=== PATIENT | female | born 1980 | race Caucasian/White ===

== ENCOUNTER → 2019-06-17 | Outpatient (CLI) | payer OTHER, SELFPAY ==
[2014-08-27 08:41] VITALS: BMI 36.3
[2019-06-17 18:02] LABS: Basophil# 0.03 X10^3/uL; Basophil% 0.5 % (0-1); Eosinophil# 0.06 X10^3/uL; Hematocrit 41.4 % (37-47); Hemoglobin 14.3 g/dL (12.0-15.0); Lymphocyte % 25.8 % (19-41); Mean Corp Hgb Conc 34.5 g/dL (32-36); Mean Corpuscular Hgb 32.4 pg (27.0-32.0); Mean Corpuscular Volume 93.9 fL (81-99); Mean Platelet Vol. 10.1 fl (6.2-12.0); Monocyte# 0.51 X10^3/uL; Monocyte% 8.2 % (0-10); NRBC Flagged by Analyzer 0 % (0-5); Neutrophil # 3.99 X10^3/uL (2.7-7.7); Neutrophil % 64.2 % (47-70); Platelet Count 237 K/mm3 (150-450); RBC Distribution Width CV 11.3 % (11.6-14.6); RBC Distribution Width SD 38.6 fl (35.1-43.9); Red Blood Count 4.41 M/mm3 (4.2-5.4); White Blood Count 6.2 K/mm3 (4.4-11.0)
[2019-06-17 18:30] LABS: ALB/GLOB Ratio 1.1 RATIO (0.9-2.4); AST(SGOT) 20 U/L (15-37); Alanine Aminotransfer ALT/SGPT 31 U/L (13-56); Albumin, Serum 4.2 g/dL (3.2-5.0); Alkaline Phosphatase 82 U/L (45-117); Anion Gap 8 (5-15); BUN 19 mg/dL (7-18); BUN/Creat Ratio 20.1 RATIO (10-20); Calcium,Total 8.9 mg/dL (8.5-10.1); Chloride 105 mmol/L (98-107); Cholesterol 206 mg/dL (200); Creatinine, Serum 0.94 mg/dL (0.55-1.02); EST Glomerular Filtration Rate 70 mL/min (>60); Est Glom Filt Rate - Afr Amer 84 mL/min (>60); Globulin 3.7 g/dL (2.2-4.2); Glucose 69 mg/dL (74-106); High Density Lipoprotein 53 mg/dL; Protein, Total 7.9 g/dL (6.4-8.2); Sodium Level 139 mmol/L (136-145); Thyroid Stim Hormone (TSH) 1.12 uIU/mL (0.358-3.74); Triglycerides 118 mg/dL; Very Low Density Lipoprotein 24 mg/dL (5-40)
== END | disposition home or self-care (01) ==
LOC: MFPLAB 15:46
PROVIDERS: Family Provider Family Medicine; PCP Family Medicine; Referring Provider Family Medicine; Visit Provider Family Medicine
DX: Z00.00 Encounter for general adult medical examination without abnormal findings (principal)
CPT/HCPCS: 36415; 80053; 80061; 84443; 85025

== ENCOUNTER → 2019-07-08 | Outpatient (CLI) | payer OTHER, SELFPAY ==
[2014-08-27 08:41] VITALS: BMI 36.3
--- NOTE | 2019-07-08 17:05 | RAD_ITS ---
HISTORY:knee pain, right more than the leftpain x 7 months knee pain, right more than the leftpain x 7 months COMPARISON: None FINDINGS: # of images incl. paperwork: 4 XR Knee Complete 4 Views or More: Left BONE AND JOINTS: No acute fracture or subluxation. Marginal osteophytes most marked laterally as well as at the patellofemoral joint with patellofemoral joint space narrowing. SOFT TISSUES: Unremarkable. No radiopaque foreign body. RAD/Knee 4 or More Views IMPRESSION: Mild osteoarthritis at 1733 Reported and signed by: Marlin Chang DO Electronically Signed: Marlin Chang DO at 17:32 EDT Tel , Service support ,
--- NOTE | 2019-07-08 17:06 | RAD_ITS ---
HISTORY:knee pain, right more than the leftpain x 7 months knee pain, right more than the leftpain x 7 months COMPARISON: None FINDINGS: # of images incl. paperwork: 4 XR Knee Complete 4 Views or More: Right BONE AND JOINTS: No acute fracture or subluxation. Marginal osteophytes are seen more prominently at the lateral space in the medial as well as at the patellofemoral joint with patellofemoral joint space narrowing. SOFT TISSUES: Unremarkable. No radiopaque foreign body. RAD/Knee 4 or More Views IMPRESSION: Mild osteoarthritis at 1733 Reported and signed by: Marlin Chang DO Electronically Signed: Marlin Chang DO at 17:32 EDT Tel , Service support ,
== END | disposition home or self-care (01) ==
LOC: MTRAD 17:04
PROVIDERS: Family Provider Family Medicine; PCP Family Medicine; Referring Provider Family Medicine; Visit Provider Family Medicine
DX: M25.561 Pain in right knee (principal); M25.562 Pain in left knee
CPT/HCPCS: 73564

== ENCOUNTER → 2019-08-05 | Outpatient (CLI) | payer OTHER, SELFPAY ==
[2014-08-27 08:41] VITALS: BMI 36.3
--- NOTE | 2019-08-05 10:32 | BI_ITS ---
MAMMOGRAPHY - BILATERAL SCREENING REASON FOR EXAM: Female, 39 years old. Routine annual screening examination. PERTINENT HISTORY: Non-contributory. TECHNIQUE: Digital bilateral breast sumanth (3D mammographic acquisition) in the CC and MLO projections. 2-D mediolateral oblique (MLO) and craniocaudad (CC) views of both breasts were obtained. CAD: Full Field Digital Mammography with Computer Added Detection was performed. COMPARISON: None. Baseline examination. FINDINGS: Breast Composition: The breasts are heterogeneously dense, which may obscure small masses. There are no dominant masses or suspicious calcifications. No other significant abnormalities are identified. BI/SCREEN MAMM (CAD) W/SUMANTH BILAT IMPRESSION: Negative screening mammogram. Yearly followup mammogram recommended. (A) ASSESSMENT CATEGORY: BIRADS Category 1: Negative. A letter regarding these results will be sent to the patient by the facility within 30 days. Approximately 10% of breast cancers are not detected by mammography. A normal mammogram should not delay biopsy of a clinically suspicious abnormality. [id number] Electronically Signed: Rubin Souza, at 12:54 EDT , Service support ,
== END | disposition home or self-care (01) ==
LOC: OPBI 10:30
PROVIDERS: Family Provider Family Medicine; PCP Family Medicine; Referring Provider Family Medicine; Visit Provider Family Medicine
DX: Z12.31 Encounter for screening mammogram for malignant neoplasm of breast (principal)
CPT/HCPCS: 77063; 77067

== ENCOUNTER 2019-08-20 17:30 | Outpatient (RCR) | payer OTHER, SELFPAY ==
--- NOTE | 2019-07-16 18:58 | HP.PTEVAL_ITS ---
Patient's Visit Information PALMIRA SIMONS is a 38 year old F referred to Physical Therapy by Brock Henson MD with a diagnosis of R knee pain and B mild OA. Date of Evaluation: 07/16/19 Physical Therapist: ELIA Mason - Visit Plan Frequency: 2x /Week Duration: 2-4 Weeks Plan: 2X/ week for 3-4 weeks for R hip and knee strength, gait training, R KNEE AROM, functional activities with HEP - Subjective Findings: She has always been very active and still does exercise. In Nov she was sledding with her family and her daughter jumped onto her R knee... she felt like a pain... since then something has not been right. It is affected her QOL... lateral movements and she feels pain under her knee cap. WHen she is not exercising it is annoying but when she goes down stairs or jumps etc it is uncomfortable. IT is no longer swelling after activity anymore. 2 weeks ago x- rays showed mild arthritis. She does not believe that arthritis is the only problem. In the summer she would normally do a morning and evening fitness class but it almost locks at times with her normal fitness level. If she tries to piviot in the back yard... the more she exercises the more crunchiness she would get. up and down stairs is bothering her. Running is uncomfortable. No injection was given. Throbs at night after a long day. It does not keep her up at night. Kneeling on a hard surfaces bother her R knee. Squats are uncomftable. - Pain R knee pain Pain Intensity (Out of 10): 1 Comment: 10 with standing for a long period of time. - Objective Gait: Slightly decreased stance time on the R LE. 130 degrees L knee flex and 0 degrees extension. 120 degrees R knee flex, -5 degrees extension. Increase R HS cramping with end range knee AROM in supine. LE MMT: B hip flex 4-/5, B hip abd 4-/5, B knee ext 4-/5, B knee flex 4/5,. SOme pain with valgus at the R knee at about 30 degrees from full extension. OHS: Normal OHS mechanics but has increased discomfort but did not want to continue with them as she feels it would increase her pain. Pt had throbbing in R knee cap after PT EVAL. Good HS length.... tight gastroc B and slight tight Quad B. - Goals Goal 1:: I HEP Goal Time Frame: 2 Weeks Goal 2:: Increase R knee ROM to 0 degrees extension and 130 degrees R knee flexion without pain Goal Time Frame: 2-4 Weeks Goal 3:: Be able to perform an OHS without pain with good mechanics Goal Time Frame: 2-4 Weeks - Rehabilitation Potential Rehabilitation Potential: Good - Anticipated Interventions Patient/Client Instruction: Educate patient on: Condition, Plan of Care For the Purpose of:: To decrease pain, To decrease swelling/inflammation, To increase ROM, To improve nutrient delivery to tissue, To improve muscle performance and motor function, To improve ability to perform ADL's, To increase tolerance to activity/condition/position, To improve performance and independence with ADL's, To decrease level of supervision to perform tasks, To improve ability of physical actions for home/community/work/leisure, To improve gait and locomotor functions, To improve health of tissue, To decrease soft tissue restriction, To increase flexibility/ROM Therapeutic Exercise to Include: Strength training, Endurance training, Balance training, Flexibilty training, Gait and locomotor training, Passive ROM, Active ROM For the Purpose of:: To decrease pain, To decrease swelling/inflammation, To increase ROM, To improve nutrient delivery to tissue, To increase oxygenation perfusion, To improve muscle performance and motor function, To improve ability to perform ADL's, To increase tolerance to activity/condition/position, To improve performance and independence with ADL's, To decrease level of supervision to perform tasks, To improve ability of physical actions for home/community/work/leisure, To improve gait and locomotor functions, To improve health of tissue, To decrease soft tissue restriction, To increase flexibility/ROM, To improve endurance Functional Training to Include: Gait training For the Purpose of:: To improve gait and locomotor functions IF ES: Yes Ultrasound (thermal/non thermal): Yes For the Purpose of:: To decrease pain, To decrease swelling/inflammation, To improve nutrient delivery to tissue Thank you for the opportunity to evaluate your patient. For Medicare and Medicare HMO plans, please review the plan of care and approve it. It will need to be FAXED BACK to us at [phone] for Medicare purposes. For Medicare only, by signing this I certify the plan of care. Please let me know if there are questions or concerns regarding this plan of care. Physician Signature : Date:
--- NOTE | 2019-08-20 18:08 | HP.PTDCSUM_ITS ---
HP - PT D/C Summary It has been my pleasure to treat PALMIRA SIMONS under orders from Brock Henson MD, for the diagnosis of R knee pain and B mild OA for a total of 9 visit(s). Discharge Date: 08/20/19 Please see the following information for a summary of their discharge status. - Subjective Subjective: Have stopped going to her exercise classes.... dont feel the discomfort as early in the day but her QOL is poor due to being inactive. She called her Dr and has an appointment on Sunday. It is not locking and not giving out but she has a feeling that her knee needs to pop.... if she does too much at the end of the day. she gets cramps in her hamstring and the base of her knee that she has not experienced before. She feel that she is stronger but she has not felt that she is able to do the same cardio load she is used to. x- rays showed mild patella OA. She has pain under her knee caps and pain above the patella and sore and tight. When she does heavy jumping such as box jumps she would have sharp pain. She has annoying and nagging knee pain with walking down hill and down steps. When she was doing Terminal knee extension she would get increase pain. No pain with typical walking but sore by the end of the day... a co-worker asked why she was limping. She has restless leg when goes to bed cause it is so sore... Increase pain when sits with leg extended and then tries to bend the knee. - Pain R knee pain Pain Intensity (Out of 10): 2 - Overall Improvement % Improvement: 40 - Objective Objective/Function: R knee AROM: 0-130 degrees. R LE MMT: R hip abd 4/5 and R hip ext 4/5. Pain with pressure over the knee cap. OHS: decrease weight shift on the R side and slight increase pain. - Goals Goal 1:: I HEP Goal Progress: Goal Met Goal 2:: Increase R knee ROM to 0 degrees extension and 130 degrees R knee flexion without pain Goal Progress: Goal Met Goal 3:: Be able to perform an OHS without pain with good mechanics Goal Progress: Progressing - Plan Plan: Pt is a little better since she reduced her activity but she has eliminated exercise. She is a little better in strength.... at this point physician reassessment with possible MRI/ortho consult. - D/C Information Discharge Comments: DC PT. Physician referral for either ortho consult of MRI If there are questions or concerns regarding this patient's physical therapy, please feel free to call me at [phone]. Thank you for the referral of this patient. Sincerely, Meche Martin, MPT
== END 2019-08-20 19:00 | disposition home or self-care (01) ==
LOC: PT 17:30
PROVIDERS: Family Provider Family Medicine; PCP Family Medicine; Referring Provider Family Medicine; Visit Provider Family Medicine
DX: M25.561 Pain in right knee (principal); M17.0 Bilateral primary osteoarthritis of knee
CPT/HCPCS: 97110; 97161; 97530

== ENCOUNTER → 2019-11-27 16:03 | Outpatient (CLI) | payer OTHER, SELFPAY ==
[2014-08-27 08:41] VITALS: BMI 36.3
[2019-12-03 20:50] LABS: HPV Reflexed? NOT INDICATED
== END ==
PROVIDERS: Visit Provider Obstetrics & Gynecology
DX: Z12.4 Encounter for screening for malignant neoplasm of cervix (principal)
CPT/HCPCS: 88175; G0145

== ENCOUNTER → 2020-08-31 | Outpatient (CLI) | payer OTHER, SELFPAY ==
[2014-08-27 08:41] VITALS: BMI 36.3
--- NOTE | 2020-08-31 12:08 | RAD_ITS ---
HISTORY: chest pain, fatigue, body aches over the last weekend ADDITIONAL HISTORY: None provided. COMPARISON: None EXAMINATION/TECHNIQUE: XR Chest 2 Views Number of images including paperwork: 2 FINDINGS: LUNGS AND PLEURA: No consolidation, mass or pleural effusion. CARDIAC SILHOUETTE: Unremarkable. MEDIASTINUM AND JOSE ALFREDO: Unremarkable. UPPER ABDOMEN: Unremarkable. SKELETON AND SOFT TISSUES: No acute findings. Degenerative changes. OTHER DEVICES AND HARDWARE: None. RAD/Chest PA and Lateral IMPRESSION: No acute cardiopulmonary abnormality. at 0812 Reported and signed by: Olivia Jamil MD Electronically Signed: Olivia Jamil MD at 8:11 EDT Tel , Service support ,
[2020-08-31 15:43] LABS: Absolute Lymphocyte Count 1.61 X10^3/uL (0.83-4.51); Absolute Neutrophil Count 4.4 X10^3/uL (2.0-7.7); Basophil# 0.02 X10^3/uL; Basophil% 0.3 % (0-1); Eosinophil# 0.06 X10^3/uL; Eosinophils% 0.9 % (0-5); Hematocrit 42.6 % (37-47); Hemoglobin 14.3 g/dL (12.0-15.0); Lymphocyte # 1.61 X10^3/ul (4.0); Lymphocyte % 24.3 % (19-41); Mean Corp Hgb Conc 33.6 g/dL (32-36); Mean Corpuscular Hgb 32.4 pg (27.0-32.0); Mean Corpuscular Volume 96.4 fL (81-99); Mean Platelet Vol. 10.2 fl (6.2-12.0); Monocyte# 0.56 X10^3/uL; Monocyte% 8.4 % (0-10); NRBC Flagged by Analyzer 0 % (0-5); Neutrophil # 4.37 X10^3/uL (2.7-7.7); Neutrophil % 65.9 % (47-70); Platelet Count 272 K/mm3 (150-450); RBC Distribution Width CV 10.8 % (11.6-14.6); Red Blood Count 4.42 M/mm3 (4.2-5.4); White Blood Count 6.6 K/mm3 (4.4-11.0)
[2020-08-31 16:11] LABS: AST(SGOT) 26 U/L (15-37); Alanine Aminotransfer ALT/SGPT 39 U/L (13-56); Alkaline Phosphatase 88 U/L (45-117); Anion Gap 7 (5-15); BUN 14 mg/dL (7-18); BUN/Creat Ratio 16.6 RATIO (10-20); Calcium,Total 9.1 mg/dL (8.5-10.1); Chloride 103 mmol/L (98-107); Cholesterol 197 mg/dL (200); Creatinine, Serum 0.84 mg/dL (0.55-1.02); EST Glomerular Filtration Rate 79 mL/min (>60); Est Glom Filt Rate - Afr Amer 96 mL/min (>60); Globulin 4.2 g/dL (2.2-4.2); Glucose 70 mg/dL (74-106); High Density Lipoprotein 58 mg/dL; Potassium 3.5 mmol/L (3.5-5.1); Protein, Total 8.2 g/dL (6.4-8.2); Sodium Level 137 mmol/L (136-145); Thyroid Stim Hormone (TSH) 0.01 uIU/mL (0.358-3.74); Triglycerides 85 mg/dL; Very Low Density Lipoprotein 17 mg/dL (5-40)
== END | disposition home or self-care (01) ==
PROVIDERS: PCP Family Medicine; Referring Provider Family Medicine; Visit Provider Family Medicine
DX: R07.9 Chest pain, unspecified (principal)
CPT/HCPCS: 36415; 71046; 80053; 80061; 84443; 85025

== ENCOUNTER → 2020-09-01 | Outpatient (CLI) | payer OTHER, SELFPAY ==
[2014-08-27 08:41] VITALS: BMI 36.3
[2020-09-01 18:24] LABS: T4 Free Direct 1.46 ng/dL (0.76-1.46)
[2020-09-04 08:08] LABS: Thyroid Stim Immunoglob <0.10 IU/L (0.00-0.55)
[2020-09-05 07:14] LABS: Anti-Thyroglobulin AB < 1.0 IU/mL (0.0-0.9); Thyroglobulin, Serum Qt. 24.6 ng/mL (1.5-38.5); Thyroid Peroxidase AB < 9 IU/mL (0-34)
== END | disposition home or self-care (01) ==
LOC: MFPLAB 15:54
PROVIDERS: PCP Family Medicine; Referring Provider Family Medicine; Visit Provider Family Medicine
DX: I10 Essential (primary) hypertension (principal); E78.00 Pure hypercholesterolemia, unspecified; R79.89 Other specified abnormal findings of blood chemistry
CPT/HCPCS: 36415; 84432; 84439; 84445; 86376; 86800

== ENCOUNTER → 2020-09-02 09:36 | Outpatient (CLI) | payer OTHER, SELFPAY ==
[2014-08-27 08:41] VITALS: BMI 36.3
--- NOTE | 2020-09-03 14:36 | STRESSREP_ITS ---
Stress Test Report Date: 09/02/2020 Procedure: Exercise tolerance test Indications: [Chest pain] Consent: Per the patient Procedure: The patient exercised on a Ike protocol for 9 minutes achieving a peak heart rate of 176 bpm (98% predicted maximal heart rate) with a peak blood pressure 202/72 mmHg and a peak MET capacity of approximately 10.1 MET's. The baseline ECG demonstrated normal sinus rhythm. The peak exercise ECG demonstrated sinus tachycardia with upsloping ST depressions in the inferior and lateral leads. There were no significant ischemic ST-T changes. [There were no cardiac dysrhythmias pretest, during exercise, or recovery]. The functional capacity was considered normal for age. The patient had no complaint of chest discomfort during exercise or recovery. The examination was discontinued secondary to dyspnea. Impression: 1. Technically adequate (percent predicted maximal heart rate greater than 85%) exercise tolerance test 2. Stress test is negative for exercise-induced chest pain. 3. Stress test test is negative for exercise-induced EKG changes of ischemia. 4. Functional capacity is normal for age This note was generated with [employer] software. It may contain incorrect words, spelling, and punctuation that were not noted in checking the note before signing.
== END | disposition home or self-care (01) ==
LOC: CVS 09:36
PROVIDERS: PCP Family Medicine; Referring Provider Family Medicine; Visit Provider Family Medicine
CPT/HCPCS: 93017

== ENCOUNTER → 2020-12-02 12:57 | Outpatient (CLI) | payer OTHER, SELFPAY ==
--- NOTE | 2020-12-02 12:59 | BI_ITS ---
MAMMOGRAPHY - BILATERAL SCREENING REASON FOR EXAM: Female, 40 years old. Routine annual screening examination. PERTINENT HISTORY: Non-contributory. TECHNIQUE: Digital bilateral breast sumanth (3D mammographic acquisition) in the CC and MLO projections. 2-D mediolateral oblique (MLO) and craniocaudad (CC) views of both breasts were obtained. CAD: Full Field Digital Mammography with Computer Added Detection was performed. COMPARISON: Comparison is made with prior study dated 08/05/2019. FINDINGS: Breast Composition: The breasts are extremely dense, which lowers the sensitivity of mammography. There are no dominant masses or suspicious calcifications. No other significant abnormalities are identified. There has been no significant change since the prior study. BI/SCRN MAMM (CAD)W/SUMANTH BILAT IMPRESSION: Stable bilateral screening mammogram. Yearly follow-up mammogram recommended. (A) ASSESSMENT CATEGORY: BIRADS Category 1: Negative. A letter regarding these results will be sent to the patient by the facility within 30 days. Approximately 10% of breast cancers are not detected by mammography. A normal mammogram should not delay biopsy of a clinically suspicious abnormality. [id number] Electronically Signed: Rubin Souza, at 13:55 EST , Service support ,
== END ==
PROVIDERS: PCP Family Medicine; Referring Provider Family Medicine; Visit Provider Family Medicine
DX: Z12.31 Encounter for screening mammogram for malignant neoplasm of breast (principal)
CPT/HCPCS: 77063; 77067

== ENCOUNTER → 2020-12-02 | Outpatient (CLI) | payer OTHER, SELFPAY ==
[2020-12-07 15:25] LABS: HPV Reflexed? NOT INDICATED
== END | disposition home or self-care (01) ==
LOC: LABSPEC 13:34
PROVIDERS: PCP Family Medicine; Visit Provider Obstetrics & Gynecology
DX: Z12.4 Encounter for screening for malignant neoplasm of cervix (principal)
CPT/HCPCS: 88175; G0145

== ENCOUNTER 2021-11-24 15:47 | Outpatient (CLI) | payer OTHER, SELFPAY | END 2021-11-24 23:59 | disposition short-term general hospital (02) | PROVIDERS: PCP Family Medicine; Visit Provider Family Medicine | DX: Z11.52 Encounter for screening for COVID-19 (principal) | CPT/HCPCS: 87635; U0003; U0005 ==

== ENCOUNTER 2021-12-13 11:00 | Outpatient (CLI) | payer OTHER, SELFPAY ==
[2021-12-13 12:19] LABS: Absolute Lymphocyte Count 1.24 X10^3/uL (0.83-4.51); Absolute Neutrophil Count 2.6 X10^3/uL (2.0-7.7); Basophil# 0.03 X10^3/uL; Basophil% 0.7 % (0-1); Eosinophil# 0.07 X10^3/uL; Eosinophils% 1.6 % (0-5); Hematocrit 40.4 % (37-47); Hemoglobin 14.2 g/dL (12.0-15.0); Lymphocyte # 1.24 X10^3/ul (0.83-4.51); Lymphocyte % 28.5 % (19-41); Mean Corp Hgb Conc 35.1 g/dL (32-36); Mean Corpuscular Hgb 33.2 pg (27.0-32.0); Mean Corpuscular Volume 94.4 fL (81-99); Mean Platelet Vol. 9.6 fl (6.2-12.0); Monocyte# 0.36 X10^3/uL; Monocyte% 8.3 % (0-10); NRBC Flagged by Analyzer 0 % (0-5); Neutrophil # 2.64 X10^3/uL (2.7-7.7); Neutrophil % 60.7 % (47-70); Platelet Count 272 K/mm3 (150-450); RBC Distribution Width CV 11.3 % (11.6-14.6); RBC Distribution Width SD 38.4 fl (35.1-43.9); Red Blood Count 4.28 M/mm3 (4.2-5.4); White Blood Count 4.4 K/mm3 (4.4-11.0)
[2021-12-13 12:48] LABS: Vitamin B12 491 pg/mL (211-911); Vitamin D,25 Hydroxy 47.1 ng/mL
[2021-12-13 13:10] LABS: AST(SGOT) 25 U/L (15-37); Alanine Aminotransfer ALT/SGPT 42 U/L (13-56); Alkaline Phosphatase 86 U/L (45-117); Anion Gap 6 (5-15); BUN 13 mg/dL (7-18); BUN/Creat Ratio 15.8 RATIO (10-20); Calcium,Total 9.3 mg/dL (8.5-10.1); Chloride 103 mmol/L (98-107); Creatinine, Serum 0.82 mg/dL (0.55-1.02); EST Glomerular Filtration Rate 81 mL/min (>60); Est Glom Filt Rate - Afr Amer 98 mL/min (>60); Globulin 4.2 g/dL (2.2-4.2); Glucose 77 mg/dL (74-106); Protein, Total 8.2 g/dL (6.4-8.2); Sodium Level 135 mmol/L (136-145); T4 Free Direct 0.92 ng/dL (0.76-1.46); Thyroid Stim Hormone (TSH) 1.64 uIU/mL (0.358-3.74)
[2021-12-15 08:09] LABS: Thyroid Stim Immunoglob <0.10 IU/L (0.00-0.55)
[2021-12-15 10:22] LABS: Anti-Thyroglobulin AB < 1.0 IU/mL (0.0-0.9); Thyroglobulin, Serum Qt. 37.6 ng/mL (1.5-38.5); Thyroid Peroxidase AB 10 IU/mL (0-34)
== END 2021-12-13 23:59 | disposition short-term general hospital (02) ==
LOC: MFPLAB 11:00
PROVIDERS: PCP Family Medicine; Referring Provider Family Medicine; Visit Provider Family Medicine
DX: E05.90 Thyrotoxicosis, unspecified without thyrotoxic crisis or storm (principal); R53.83 Other fatigue
CPT/HCPCS: 80053; 82306; 82607; 84432; 84439; 84443; 84445; 85025; 86376; 86800

== ENCOUNTER 2021-12-20 12:13 | Outpatient (CLI) | payer OTHER, SELFPAY ==
--- NOTE | 2021-12-20 12:16 | BI_ITS ---
MAMMOGRAPHY - BILATERAL SCREENING REASON FOR EXAM: Female, 41 years old. Routine annual screening examination. PERTINENT HISTORY: Non-contributory. TECHNIQUE: Digital bilateral breast sumanth (3D mammographic acquisition) in the CC and MLO projections. 2-D mediolateral oblique (MLO) and craniocaudad (CC) views of both breasts were obtained. CAD: Full Field Digital Mammography with Computer Added Detection was performed. COMPARISON: Comparison is made with prior study dated 12/02/2020 and 08/05/2019. FINDINGS: Breast Composition: The breasts are extremely dense, which lowers the sensitivity of mammography. There are no dominant masses or suspicious calcifications. No other significant abnormalities are identified. There has been no significant change since the prior study. BI/SCRN MAMM (CAD)W/SUMANTH BILAT IMPRESSION: Stable bilateral screening mammogram. Yearly follow-up mammogram recommended. (A) ASSESSMENT CATEGORY: BIRADS Category 1: Negative. A letter regarding these results will be sent to the patient by the facility within 30 days. Approximately 10% of breast cancers are not detected by mammography. A normal mammogram should not delay biopsy of a clinically suspicious abnormality. [id number] Electronically Signed: Rubin Souza MD at 13:55 EST ,
== END 2021-12-20 23:59 | disposition short-term general hospital (02) ==
LOC: OPBI 12:14
PROVIDERS: PCP Family Medicine; Visit Provider Obstetrics & Gynecology
DX: Z12.31 Encounter for screening mammogram for malignant neoplasm of breast (principal)
CPT/HCPCS: 77063; 77067

== ENCOUNTER 2022-04-05 14:39 | Emergency (ER) | payer OTHER, SELFPAY ==
[2022-04-05 14:41] VITALS: BP 154/93; PULSE 97; RESP 18; TEMP 36.9; O2SAT 97; BMI 33.2
--- NOTE | 2022-04-05 14:57 | EX.ED.DYSGE1 ---
HPI History of Present Illness Chief Complaint: General Illness Informant: patient Onset/Context/Timing Onset: Today Timing: Intermittent Current Severity: Mild Maximum Severity: Mild Narrative Narrative: 41-year-old female status post umbilical hernia surgery repair with mesh done earlier today by Dr. Brian Sanford at [facility]. Patient states her surgery was around 10 AM and she has discharged around 1:30 PM. Said when she went home she noticed blood on her shirt, pants and the surgical dressing. Called her surgeon who told her to come to the emergency department. She denies any prior history of bleeding problems. She has not had any nosebleeds. No easy bruising. No hematuria or melena. She is on no blood thinners. Prior similar symptoms: No Recent Illness/Hospitalization: No PFSH PFSH Medical History no medical history no medical history Home Medications Pnv#71/Iron/Folic Acid/Dha 08/27/14 [History Last Taken 08/26/14 08:00] Ibuprofen [Motrin] 800 mg PO TID PRN PRN #60 tab 08/29/14 [Rx Last Taken Unknown] oxycodone-acetaminophen 1 - 2 tab PO Q4H PRN PRN #30 tab 08/29/14 [Rx Last Taken Unknown] Allergy/AdvReac Type Severity Reaction Status Date / Time No Known Allergies Allergy Verified 08/27/14 08:40 Surgical History H/O hernia repair Hx of appendectomy Social History Smoking Status: Never smoker ROS ROS ED ROS Narrative Denies recent illness. Review of Systems ROS Unobtainable: Denies due to encephalopathy Constitutional Constitutional ED: Denies fever(s) Eyes Eyes: Denies change in vision ENT ENT ED: Denies ear pain Cardiovascular Cardiovascular: Denies chest pain Respiratory/Chest Respiratory/Chest: Denies dyspnea Gastrointestinal Gastrointestinal: Denies abdominal pain, diarrhea, nausea or vomiting Genitourinary Genitourinary ED: Denies dysuria or hematuria Musculoskeletal Musculoskeletal: Denies myalgias Integumentary Denies rash Neurologic Neurologic: Denies headache(s) Psychiatric Psychiatric: Denies depression Endocrine Endocrinology: Denies polyuria Allergic/Immunologic Allergic/Immunologic ED: Denies urticaria EXAM Physical Exam Narrative Exam Narrative: Well-appearing 41-year-old female. No acute distress. Vital signs stable afebrile. H EENT exam unremarkable. Lungs are clear. Heart regular rhythm no murmur. Abdomen soft nondistended without sounds no peritoneal signs. No problem the left she had a dressing on umbilical neck surgery. He had blood on it. It was removed. There is very minimal oozing of blood at this time. No pulsatile bleeding. The blood is dark. There is no significant surrounding hematoma development is only minimal tenderness. The rest of her abdomen is benign. Moving all 4 extremities. Const Vital Signs: 04/05/22 14:41 04/05/22 14:46 Temperature 98.4 F Temperature Source Temporal Pulse Rate 97 Respiratory Rate 18 Respiratory Effort Normal Respiratory Pattern Normal Blood Pressure 154/93 H Blood Pressure Mean 113 Pulse Ox 97 Oxygen Delivery Method Room Air Positive well nourished, well developed and obese; Negative for cachectic, contractures or unkempt General Appearance ED: well developed and NAD; Negative for unkempt, cachectic, contractures, cyanotic or diaphoretic Nutritional Appearance: obese; Negative for cachectic HEENT Reports moist mucous membranes Negative for trauma or tenderness Eyes PERRL and EOMs intact bilaterally General Eye ED: Negative for pale conjunctiva or scleral icterus Neck no lymphadenopathy, supple and no JVD General: Negative for tenderness Chest Wall inspection of chest normal and palpation of chest normal Resp normal respiratory effort and clear to auscultation bilaterally Effort and Inspection: Negative for pain with movement Auscultation: Negative for rales, rhonchi or wheezes Cardio regular rate, regular rhythm, S1 normal heart sound, S2 normal heart sound and no murmurs GI normal to inspection, nondistended, normoactive bowel sounds, non-tender, non-distended and no masses Inspection: Negative for abdominal distention Auscultation: normoactive bowel sounds Palpation: soft; Negative for tender, guarding or rebound tenderness present Back/Spine Thoracic Spine / Upper Back: thoracic spinal tenderness Extremity normal to inspection General Extremety ED: Negative for edema or tenderness General Extremity: Negative for edema Psych mental status grossly normal Appearance: Negative for unkempt Mood & Affect: Negative for depressed Skin no rashes or lesions noted and no wounds Skin Narrative: Frequent premature recent surgical incision neck patient. Mildly oozing of blood. No pulsatile bleeding. Dry and clean otherwise. MDM MDM MDM Narrative Medical decision making narrative: 41-year status post umbilical hernia surgery repair with mesh. Had postop milligrams bleeding. Kcentra was currently is only mildly oozing. I have already spoken with Dr. Sanford cardiohepatic prior to patient's arrival. He is already in the emergency department evaluating her at this time. Repeat exam patient doing well. Dr. Sanford is reevaluated. He now comes with her being discharged home. She will follow-up with them as an outpatient. Bleeding currently is resolved. Discharge Plan Triage Chief Complaint: General Illness ED Provider: Shahriar Avila Dx/Rx/DC Orders Clinical Impression: Post-op bleeding, Status post hernia repair Instructions: ED Post Op Wound Check, Bleeding Prescriptions: No Action Pnv#71/Iron/Folic Acid/Dha RF: 0 oxycodone-acetaminophen 1 TABLET tablet 1 - 2 tab PO Q4H PRN PRN (Reason: Abdominal Pain) Qty: 30 RF: 0 Ibuprofen [Motrin] 800 MG tablet 800 mg PO TID PRN PRN (Reason: Abdominal Pain) Qty: 60 RF: 1 Primary Care Provider: Brock Henson Referrals: Brian Sanford MD [STAFF PHYSICIAN] - Keep Urszula appointment Brock Henson MD [Primary Care Provider] - Activity Restrictions/Additional Instructions: If you develop a lot more bleeding follow-up with Dr. Sanford or return to the emergency department. Take it easy. Direct pressure is the area if family believes. Disposition Disposition: Home, Self Care
[2022-04-05 16:01] VITALS: PULSE 89; RESP 16; O2SAT 98
--- NOTE | 2022-04-05 16:08 | PCM.PN.SRG ---
Subjective Subjective Is a 41-year-old female who I performed a umbilical hernia repair with a pair Rai mesh at [facility]. She presented today with some bleeding. The dressing was removed by the ER physician pressure was applied. No further bleeding was identified. Objective Data Objective Data I cleaned the wound I replaced Steri-Strips and a dressing with a water occlusive application. Vital Signs: Vital Signs Temp Pulse Resp BP Pulse Ox 98.4 F 89 16 154/93 H 98 04/05/22 14:41 04/05/22 16:01 04/05/22 16:01 04/05/22 14:41 04/05/22 16:01 Oxygen Delivery Method Room Air Weight: 205 lb 14.588 oz Body Mass Index (BMI) 33.2 Assessment & Plan Assessment/Plan (1) Post-op bleeding: QUALIFIERS: Surgical complication system/body Area: skin Procedure type: dermatologic Qualified Code(s): L76.21 - Postprocedural hemorrhage of skin and subcutaneous tissue following a dermatologic procedure (2) Status post hernia repair: PLAN: Patient will apply pressure when she gets home. I gave her my cell phone number if there is any further bleeding she can give me a call. She is to follow-up in the office as scheduled.
== END 2022-04-05 16:02 | disposition home or self-care (01) ==
PROVIDERS: Emergency Provider Emergency Medicine; PCP Family Medicine; Visit Provider Emergency Medicine
DX: L76.22 Postprocedural hemorrhage of skin and subcutaneous tissue following other procedure (principal)
CPT/HCPCS: 99282

== ENCOUNTER → 2022-12-26 | Outpatient (CLI) | payer OTHER, SELFPAY ==
[2022-12-26 14:41] LABS: Basophil# 0.03 X10^3/uL; Basophil% 0.4 % (0-1); Eosinophil# 0.06 X10^3/uL; Eosinophils% 0.9 % (0-5); Lymphocyte % 19.2 % (19-41); Mean Corp Hgb Conc 34.1 g/dL (32-36); Mean Corpuscular Hgb 33.1 pg (27.0-32.0); Mean Corpuscular Volume 96.9 fL (81-99); Mean Platelet Vol. 9.9 fl (6.2-12.0); Monocyte# 0.43 X10^3/uL; Monocyte% 6.3 % (0-10); NRBC Flagged by Analyzer 0 % (0-5); Neutrophil # 4.95 X10^3/uL (2.7-7.7); Neutrophil % 73.1 % (47-70); Platelet Count 260 K/mm3 (150-450); RBC Distribution Width CV 11.3 % (11.6-14.6); RBC Distribution Width SD 40.1 fl (35.1-43.9); Red Blood Count 4.23 M/mm3 (4.2-5.4); White Blood Count 6.8 K/mm3 (4.4-11.0)
[2022-12-26 15:21] LABS: AST(SGOT) 34 U/L (15-37); Alanine Aminotransfer ALT/SGPT 41 U/L (13-56); Alkaline Phosphatase 77 U/L (45-117); Anion Gap 8 (5-15); BUN 19 mg/dL (7-18); BUN/Creat Ratio 21.1 RATIO (10-20); Calcium,Total 9.3 mg/dL (8.5-10.1); Chloride 103 mmol/L (98-107); EST Glomerular Filtration Rate 72 mL/min (>60); Est Glom Filt Rate - Afr Amer 88 mL/min (>60); Glucose 72 mg/dL (74-106); Potassium 4.4 mmol/L (3.5-5.1); Sodium Level 138 mmol/L (136-145); T4 Free Direct 1.05 ng/dL (0.76-1.46); Thyroid Stim Hormone (TSH) 1.17 uIU/mL (0.358-3.74)
== END | disposition home or self-care (01) ==
LOC: MFPLAB 11:49
PROVIDERS: PCP Family Medicine; Referring Provider Family Medicine; Visit Provider Family Medicine
DX: R63.5 Abnormal weight gain (principal)
CPT/HCPCS: 36415; 80053; 84439; 84443; 85025

== ENCOUNTER → 2023-01-03 | Outpatient (CLI) | payer OTHER, SELFPAY ==
--- NOTE | 2023-01-03 13:05 | BI_ITS ---
MAMMOGRAPHY - BILATERAL SCREENING REASON FOR EXAM: Female, 42 years old. Routine annual screening examination. PERTINENT HISTORY: Non-contributory. TECHNIQUE: Digital bilateral breast sumanth (3D mammographic acquisition) in the CC and MLO projections. 2-D mediolateral oblique (MLO) and craniocaudad (CC) views of both breasts were obtained. CAD: Full Field Digital Mammography with Computer Added Detection was performed. COMPARISON: Comparison is made with prior study dated 12/20/2021 and 12/02/2020. FINDINGS: Breast Composition: The breasts are extremely dense, which lowers the sensitivity of mammography. There are no dominant masses or suspicious calcifications. Small benign-appearing bilateral axillary lymph nodes. No other significant abnormalities are identified. There has been no significant change since the prior study. BI/SCRN MAMM (CAD)W/SUMANTH BILAT IMPRESSION: Stable bilateral screening mammogram. Yearly follow-up mammogram recommended. (A) ASSESSMENT CATEGORY: BIRADS Category 2: Benign. A letter regarding these results will be sent to the patient by the facility within 30 days. Approximately 10% of breast cancers are not detected by mammography. A normal mammogram should not delay biopsy of a clinically suspicious abnormality. [id number] Electronically Signed: Rubin Souza MD at 13:58 EST ,
== END | disposition home or self-care (01) ==
LOC: OPBI 13:03
PROVIDERS: PCP Family Medicine; Visit Provider Family Medicine
DX: Z12.31 Encounter for screening mammogram for malignant neoplasm of breast (principal)
CPT/HCPCS: 77063; 77067

== ENCOUNTER → 2023-06-20 | Outpatient (CLI) | payer OTHER, SELFPAY ==
[2023-06-20 10:08] LABS: Hematocrit 41.4 % (37-47); Hemoglobin 14.6 g/dL (12.0-15.0); Mean Corp Hgb Conc 35.3 g/dL (32-36); Mean Corpuscular Hgb 34.1 pg (27.0-32.0); Mean Corpuscular Volume 96.7 fL (81-99); Mean Platelet Vol. 9.4 fl (6.2-12.0); Platelet Count 222 K/mm3 (150-450); RBC Distribution Width CV 11.5 % (11.6-14.6); RBC Distribution Width SD 40.7 fl (35.1-43.9); Red Blood Count 4.28 M/mm3 (4.2-5.4); White Blood Count 4.9 K/mm3 (4.4-11.0)
[2023-06-20 10:49] LABS: Insulin 11.6 mU/L (2.6-37.6); T3 Total - Triiodothyronine 1.19 ng/mL (0.6-1.81); Vitamin B12 429 pg/mL (211-911); Vitamin D,25 Hydroxy 37.9 ng/mL
[2023-06-20 10:52] LABS: Hemoglobin A1c 4.8 % (3.8-5.6)
[2023-06-20 11:05] LABS: Anion Gap 2 (5-15); BUN 14 mg/dL (7-18); BUN/Creat Ratio 17.2 RATIO (10-20); Calcium,Total 8.8 mg/dL (8.5-10.1); Chloride 108 mmol/L (98-107); Creatinine, Serum 0.81 mg/dL (0.55-1.02); EST Glomerular Filtration Rate 81 mL/min (>60); Est Glom Filt Rate - Afr Amer 98 mL/min (>60); Ferritin 136 ng/mL (8-252); Glucose 83 mg/dL (74-106); Iron 137 ug/dL (50-170); Iron Binding Capacity,Total 319 ug/dL (250-450); PERCENT IRON SATURATION 42.9 % (15.0-55.0); Potassium 4.2 mmol/L (3.5-5.1); Sodium Level 138 mmol/L (136-145); T4 Total, Thyroxin 8.8 ug/dL (4.8-13.9); Thyroid Stim Hormone (TSH) 1.11 uIU/mL (0.358-3.74)
== END | disposition home or self-care (01) ==
LOC: MFPLAB 09:23
PROVIDERS: PCP Family Medicine; Visit Provider Physician Assistant
DX: Z79.899 Other long term (current) drug therapy (principal)
CPT/HCPCS: 36415; 80048; 82306; 82607; 82728; 82746; 83036; 83525; 83540; 83550; 84436; 84443; 84480; 85027

== ENCOUNTER → 2024-02-28 | Outpatient (CLI) | payer OTHER, SELFPAY ==
--- NOTE | 2024-02-28 15:58 | RAD_ITS ---
INDICATION: Elevated blood pressure/HTN EXAMINATION/TECHNIQUE: X-RAY - XR Chest 2 Views COMPARISON: August 31, 2020 FINDINGS: LINES/DEVICES: None. LUNGS: No consolidation, edema or effusion. No pneumothorax. MEDIASTINUM AND CARDIOVASCULAR STRUCTURES: Cardiac silhouette not enlarged. Central airways and mediastinal contour are unremarkable. BONES AND SOFT TISSUES: Unremarkable. RAD/Chest PA and Lateral IMPRESSION: No radiographic evidence of acute cardiopulmonary disease. Electronically Signed: Steven Middleton DO at 22:56 EDT ,
[2024-02-28 16:02] LABS: Bacteria 0 SEEN /hpf (None Seen); Mucous, Urine 0 SEEN /hpf (<or=2+); Red Blood Cells-Urine 0 SEEN /hpf (0-5); White Blood Cells 0 SEEN /hpf (0-5)
[2024-02-28 17:51] LABS: Absolute Lymphocyte Count 1.88 X10^3/uL (0.83-4.51); Absolute Neutrophil Count 3.3 X10^3/uL (2.0-7.7); Basophil# 0.06 X10^3/uL; Eosinophil# 0.13 X10^3/uL; Eosinophils% 2.2 % (0-5); Hematocrit 41.4 % (37-47); Hemoglobin 13.8 g/dL (12.0-15.0); Lymphocyte # 1.88 X10^3/ul (0.83-4.51); Lymphocyte % 31.5 % (19-41); Mean Corp Hgb Conc 33.3 g/dL (32-36); Mean Corpuscular Hgb 31.7 pg (27.0-32.0); Mean Corpuscular Volume 95.2 fL (81-99); Mean Platelet Vol. 9.8 fl (6.2-12.0); Monocyte# 0.56 X10^3/uL; Monocyte% 9.4 % (0-10); NRBC Flagged by Analyzer 0 % (0-5); Neutrophil # 3.31 X10^3/uL (2.7-7.7); Neutrophil % 55.6 % (47-70); Platelet Count 301 K/mm3 (150-450); RBC Distribution Width CV 11.2 % (11.6-14.6); RBC Distribution Width SD 39.1 fl (35.1-43.9); Red Blood Count 4.35 M/mm3 (4.2-5.4)
[2024-02-28 17:57] LABS: Color, Urine Yellow (Yellow); Glucose, Dipstick Normal (Normal); Ketone-Dipstick Negative (Negative); Leukocyte Esterase-Dipstick 25 /ul (Negative); Nitrite-Dipstick Negative (Negative); Occult Blood-Urine 10 /ul (Negative); Protein-Dipstick Negative (Negative); Urine Bilirubin Dipstick Negative (Negative); Urine Clarity Sl. Cloudy (Clear); Urine Urobilinogen Normal (Normal)
[2024-02-28 18:30] LABS: Squamous Epithelial Cells - UA 5-10 SEEN /hpf (5-10)
[2024-02-28 18:57] LABS: ALB/GLOB Ratio 0.9 RATIO (0.9-2.4); AST(SGOT) 32 U/L (15-37); Alanine Aminotransfer ALT/SGPT 60 U/L (13-56); Albumin, Serum 3.8 g/dL (3.2-5.0); Alkaline Phosphatase 105 U/L (45-117); Anion Gap 3 (5-15); BUN 20 mg/dL (7-18); BUN/Creat Ratio 21.5 RATIO (10-20); Calcium,Total 9.3 mg/dL (8.5-10.1); Chloride 106 mmol/L (98-107); Cholesterol 223 mg/dL (200); Creatinine, Serum 0.93 mg/dL (0.55-1.02); EST Glomerular Filtration Rate 69 mL/min (>60); Est Glom Filt Rate - Afr Amer 84 mL/min (>60); Globulin 4.3 g/dL (2.2-4.2); Glucose 92 mg/dL (74-106); High Density Lipoprotein 56 mg/dL; Magnesium 2.2 mg/dL (1.6-2.6); Protein, Total 8.1 g/dL (6.4-8.2); Sodium Level 137 mmol/L (136-145); Thyroid Stim Hormone (TSH) 1.23 uIU/mL (0.358-3.74); Triglycerides 86 mg/dL; Very Low Density Lipoprotein 17 mg/dL (5-40)
== END | disposition home or self-care (01) ==
LOC: MTLAB 15:58
PROVIDERS: PCP Family Medicine; Referring Provider Family Medicine; Visit Provider Family Medicine
DX: R03.0 Elevated blood-pressure reading, without diagnosis of hypertension (principal); I51.7 Cardiomegaly
CPT/HCPCS: 36415; 71046; 80053; 80061; 81001; 83735; 84443; 85025

== ENCOUNTER 2024-03-14 17:10 | Emergency (ER) | payer OTHER, SELFPAY ==
[2024-03-14 17:11] VITALS: BP 170/110; PULSE 81; RESP 16; TEMP 36.6; O2SAT 96
--- NOTE | 2024-03-14 17:30 | RAD_ITS ---
STUDY: X-RAY CHEST REASON FOR EXAM: Female, 43 years old. chest pain TECHNIQUE: Frontal and lateral views of the chest. COMPARISON: 02/28/2024. FINDINGS: The lungs are clear and expanded. There is no demonstrated pleural abnormality. Normal size heart. Normal mediastinum and howard. Normal visualized pulmonary arteries. Normal visualized aortic arch and descending thoracic aorta. Normal visualized thoracic spine. Normal visualized ribs, clavicles, and shoulders. There is no demonstrated abnormality of the visualized soft tissue structures of the upper abdomen. RAD/Chest PA and Lateral IMPRESSION: Normal x-ray examination of the chest. Electronically Signed: Ben Stanton MD at 18:44 EDT ,
--- NOTE | 2024-03-14 17:36 | EKG12_ITS ---
Test Reason : PALPS Blood Pressure : / mmHG Vent. Rate : 081 BPM Atrial Rate : 081 BPM P-R Int : 134 ms QRS Dur : 080 ms QT Int : 394 ms P-R-T Axes : 040 022 021 degrees QTc Int : 457 ms Sinus rhythm with frequent Premature ventricular complexes Otherwise normal ECG Confirmed by OSCAR SPENCE, HOLLY ([id number]), photographic editor HAMZAH MACKENZIE ([id number]) on 03/17/2024 9:40:05 AM Referred By: Confirmed By:HOLLY MOORE MD
--- NOTE | 2024-03-14 17:37 | EDS_ITS ---
HPI <AUGIE Yen - Last Filed: 03/14/24 18:31> History of Present Illness Chief Complaint: Palpitations Narrative Narrative: Patient is a 43-year-old female with history of generalized anxiety disorder who presents to the emergency department for ongoing palpitations. Patient states that she developed palpitations roughly 1 month ago after a GI illness. Patient has seen her psychiatrist as well as her PCP regarding this, she did have a Holter monitor placed and recently sent away for evaluation. Patient does have an echocardiogram scheduled in March. Patient states today, the palpitations were continuous, this made her nervous and she is here for evaluation. She denies any specific pain, shortness of breath, fever chills nausea or vomiting. PFSH <AUGIE Yen - Last Filed: 03/14/24 18:31> PFSH Home Medications ascorbate calcium (vitamin C) 500 mg tablet 500 mg PO DAILY 05/10/22 [History Last Taken Unknown] levonorgestrel 20.4 mcg/24 hrs (8 yrs) 52 mg intrauterine device (Liletta) 1 device intrauterine ONCE 05/10/22 [History Last Taken Unknown] multivitamin 1 tab PO DAILY 05/10/22 [History Last Taken Unknown] escitalopram oxalate 10 mg tablet 10 mg PO DAILY 03/14/24 [History Last Taken Unknown] Allergy/AdvReac Type Severity Reaction Status Date / Time No Known Allergies Allergy Verified 03/14/24 17:14 Family History (Updated 05/10/22 @ 10:38 by Noelle Bethea) Grandmother Heart disease Thyroid disorder Grandfather Heart disease Cancer Surgical History H/O hernia repair Hx of appendectomy Social History (Updated 05/10/22 @ 10:44 by Noelle Bethea) household members: spouse and children Smoking Status: Never smoker alcohol intake: current alcohol intake frequency: holidays/special occasions only ROS <AUGIE Yen - Last Filed: 03/14/24 18:31> ROS ED ROS Narrative Constitutional: Negative for fever, chills, weight loss, weakness Eyes: Negative for vision loss, vision change, double vision ENT: Negative for any sore throat, ear pain, congestion Cardiovascular: Negative for any chest pain, tightness. Positive for palpitations Respiratory: Negative for any cough, sputum production, hemoptysis, dyspnea, dyspnea on exertion, orthopnea Gastrointestinal: Negative for any abdominal pain, nausea, vomiting, diarrhea, constipation, blood in stool, blood in vomit : Negative for any urinary frequency, dysuria, retention, blood in urine Muscle skeletal: Negative for any neck pain, back pain Neurological: Negative for any headache, syncope, dizziness Skin: Negative for any rashes, itching, abrasions, lacerations Psychiatric: Negative for any depression, anxiety, stress, suicidal ideation, homicidal ideation Hematologic: Negative for any excessive bruising, easy bleeding EXAM <AUGIE Yen - Last Filed: 03/14/24 18:31> Physical Exam Narrative Exam Narrative: Vital signs reviewed. HEET: Head normocephalic atraumatic, TMs clear bilaterally. Posterior pharynx is clear, moist mucous membranes. Nares clear bilaterally. Neck: Supple with no lymphadenopathy or tenderness. No signs of meningismus. Cardiac: Regular rate and rhythm no murmurs gallops or rubs, equal peripheral pulses bilaterally. Respiratory: Lungs clear to auscultation bilaterally. No chest tenderness. Abdomen: Soft, nontender, nondistended. No abdominal bruit or pulsatile masses. No hepatosplenomegaly Extremities: No peripheral edema, no signs of gross trauma or deformity. Active full range of motion of all extremities. Neuro: Cranial nerves II through XII intact, no focal neurological deficits. Skin: Clean dry and intact with no rash, purpura, petechiae, vesicles or pustules. Backs/flank: No CVA tenderness, no midline spinal tenderness, no deformity. Psych: Normal mood and affect. No SI, HI or acute psychosis. Const Vital Signs: 03/14/24 17:11 03/14/24 18:11 03/14/24 18:12 Temperature 97.8 F Temperature Source Temporal Pulse Rate 81 71 Respiratory Rate 16 17 Respiratory Effort Normal Blood Pressure 170/110 H 154/102 H Blood Pressure Mean 130 119 Pulse Ox 96 99 Oxygen Delivery Method Room Air Room Air <Dr. Mio Baldwin DO - Last Filed: 03/14/24 18:34> Physical Exam Const Vital Signs: 03/14/24 17:11 03/14/24 18:11 03/14/24 18:12 Temperature 97.8 F Temperature Source Temporal Pulse Rate 81 71 Respiratory Rate 16 17 Respiratory Effort Normal Blood Pressure 170/110 H 154/102 H Blood Pressure Mean 130 119 Pulse Ox 96 99 Oxygen Delivery Method Room Air Room Air [facility] <Jesse AustinAUGIE - Last Filed: 03/14/24 18:31> [facility] Lab Data Labs: Laboratory Results - last 24 hr 03/14/24 17:45 WBC 7.3 RBC 4.46 Hgb 14.4 Hct 41.7 MCV 93.5 MCH 32.3 H MCHC 34.5 RDW Std Deviation 39.1 RDW Coeff of Dony 11.4 L Plt Count 237 MPV 9.6 Immature Gran % (Auto) 0.300 Neut % (Auto) 61.4 Lymph % (Auto) 27.0 Troup % (Auto) 9.7 Eos % (Auto) 1.2 Baso % (Auto) 0.4 Absolute Neuts (auto) 4.5 Absolute Lymphs (auto) 1.96 Nucleated RBC % 0 Sodium 137 Potassium 4.0 Chloride 105 Carbon Dioxide 27.0 Anion Gap 5 BUN 21 H Creatinine 0.94 Est GFR (MDRD) Af Amer 83 Est GFR (MDRD) Non-Af 68 BUN/Creatinine Ratio 22.2 H Glucose 89 Calcium 9.6 Troponin I High Sens < 3 L EKG Sinus rhythm with PVCs: Attestation: I personally reviewed and interpreted this EKG as follows: Interpretation: Sinus Rhythm Comments: Sinus rhythm with PVCs, rate of 81 bpm, SD 134 ms, QRS duration 80 ms, no acute ST elevation, no acute infarct noted. Treatment and Re-Evaluation :: Differential diagnosis includes however is not limited to: Anxiety, ACS, LA, electrolyte abnormality Patient appears to be in no obvious respiratory distress, patient's vital signs are stable. Patient presents to the emergency department for complaints of palpitations that have been ongoing for the last month. Patient received basic workup here with CBC BMP, troponin as well as EKG and chest x-ray. On my examination I did not appreciate any irregular heart rate, there is no murmur. All radiologic examinations were read, reviewed by the emergency department attending. From these reads, a plan of care will be put in place. Patient's EKG did show some PVCs, this could be what the patient is feeling. Patient CBC was unremarkable, chemistries were unremarkable, patient's troponin was negative. Chest x-ray was unremarkable. At this time, I did educate the patient regarding PVCs, she will continue her follow-up outpatient. She is happy with the plan of care, all questions were answered, patient stable for discharge. <Dr. Mio Baldwin, DO - Last Filed: 03/14/24 18:34> [facility] Lab Data Labs: Laboratory Results - last 24 hr 03/14/24 17:45 WBC 7.3 RBC 4.46 Hgb 14.4 Hct 41.7 MCV 93.5 MCH 32.3 H MCHC 34.5 RDW Std Deviation 39.1 RDW Coeff of Dony 11.4 L Plt Count 237 MPV 9.6 Immature Gran % (Auto) 0.300 Neut % (Auto) 61.4 Lymph % (Auto) 27.0 Troup % (Auto) 9.7 Eos % (Auto) 1.2 Baso % (Auto) 0.4 Absolute Neuts (auto) 4.5 Absolute Lymphs (auto) 1.96 Nucleated RBC % 0 Sodium 137 Potassium 4.0 Chloride 105 Carbon Dioxide 27.0 Anion Gap 5 BUN 21 H Creatinine 0.94 Est GFR (MDRD) Af Amer 83 Est GFR (MDRD) Non-Af 68 BUN/Creatinine Ratio 22.2 H Glucose 89 Calcium 9.6 Troponin I High Sens < 3 L Treatment and Re-Evaluation :: Differential diagnosis includes however is not limited to: Anxiety, ACS, LA, electrolyte abnormality Patient appears to be in no obvious respiratory distress, patient's vital signs are stable. Patient presents to the emergency department for complaints of pa lpitations that have been ongoing for the last month. Patient received basic workup here with CBC BMP, troponin as well as EKG and chest x-ray. On my examination I did not appreciate any irregular heart rate, there is no murmur. All radiologic examinations were read, reviewed by the emergency department attending. From these reads, a plan of care will be put in place. Patient's EKG did show some PVCs, this could be what the patient is feeling. Patient CBC was unremarkable, chemistries were unremarkable, patient's troponin was negative. Chest x-ray was unremarkable. At this time, I did educate the patient regarding PVCs, she will continue her follow-up outpatient. She is happy with the plan of care, all questions were answered, patient stable for discharge. ED attending note: I evaluated the patient in conjunction with the [facility]. I agree with his/her statements and above findings. I have personally performed a face to face assessment of the patient and have reviewed the [facility] Note. I performed a substantive portion of the visit including all aspects of the following. I personally saw the patient performed chart review, physical exam, reviewed labs, imaging (if obtained), and formulated a treatment and management plan. This note was generated with [employer] dictation software. It may contain incorrect words, spelling, and punctuation that were not noted in review of the chart prior to signing. Discharge Plan Triage Chief Complaint: Palpitations ED Midlevel Provider: Jesse Austin ED Provider: Mio Baldwin Dx/Rx/DC Orders Clinical Impression: Asymptomatic PVCs, Palpitation Instructions: PVCs, ED Palpitations Prescriptions: No Action Liletta 20.1 mcg/24 hrs (6 yrs) 52 mg intrauterine device 1 device intrauterine ONCE Rx Instructions: as a single dose multivitamin Tablet 1 tab PO DAILY ascorbate calcium (vitamin C) 500 mg tablet 500 mg PO DAILY escitalopram oxalate 10 mg tablet 10 mg PO DAILY Primary Care Provider: Brock Henson Referrals: Brock Henson MD [Primary Care Provider] - Activity Restrictions/Additional Instructions: Please continue workup outpatient. Return for any worsening symptoms. Disposition Disposition: Home, Self Care
--- NOTE | 2024-03-14 17:41 | ED.RN ---
NO OLD EKG
[2024-03-14 17:57] LABS: Absolute Lymphocyte Count 1.96 X10^3/uL (0.83-4.51); Absolute Neutrophil Count 4.5 X10^3/uL (2.0-7.7); Basophil# 0.03 X10^3/uL; Basophil% 0.4 % (0-1); Eosinophil# 0.09 X10^3/uL; Eosinophils% 1.2 % (0-5); Hematocrit 41.7 % (37-47); Hemoglobin 14.4 g/dL (12.0-15.0); Lymphocyte # 1.96 X10^3/ul (0.83-4.51); Mean Corp Hgb Conc 34.5 g/dL (32-36); Mean Corpuscular Hgb 32.3 pg (27.0-32.0); Mean Corpuscular Volume 93.5 fL (81-99); Mean Platelet Vol. 9.6 fl (6.2-12.0); Monocyte% 9.7 % (0-10); NRBC Flagged by Analyzer 0 % (0-5); Neutrophil # 4.45 X10^3/uL (2.7-7.7); Neutrophil % 61.4 % (47-70); Platelet Count 237 K/mm3 (150-450); RBC Distribution Width CV 11.4 % (11.6-14.6); RBC Distribution Width SD 39.1 fl (35.1-43.9); Red Blood Count 4.46 M/mm3 (4.2-5.4); White Blood Count 7.3 K/mm3 (4.4-11.0)
[2024-03-14 18:07] LABS: Anion Gap 5 (5-15); BUN 21 mg/dL (7-18); BUN/Creat Ratio 22.2 RATIO (10-20); Calcium,Total 9.6 mg/dL (8.5-10.1); Chloride 105 mmol/L (98-107); Creatinine, Serum 0.94 mg/dL (0.55-1.02); EST Glomerular Filtration Rate 68 mL/min (>60); Est Glom Filt Rate - Afr Amer 83 mL/min (>60); Glucose 89 mg/dL (74-106); Sodium Level 137 mmol/L (136-145); Troponin-I HS < 3 pg/mL (3.0-54.0)
[2024-03-14 18:11] VITALS: BP 154/102; PULSE 71; RESP 17; O2SAT 99
[2024-03-14 18:34] VITALS: BP 139/89; PULSE 70; RESP 15; TEMP 37; O2SAT 96
== END 2024-03-14 18:40 | disposition home or self-care (01) ==
PROVIDERS: Nurse Practitioner; Emergency Provider Emergency Medicine; PCP Family Medicine; Visit Provider Emergency Medicine
DX: I49.3 Ventricular premature depolarization (principal)
CPT/HCPCS: 71046; 80048; 84484; 85025; 93005; 99283; A4216

== ENCOUNTER → 2024-03-26 | Outpatient (CLI) | payer OTHER, SELFPAY ==
--- NOTE | 2024-03-26 09:58 | ECHOD_ITS ---
Reason For Study: CARDIOMEGALY Procedure This was a 2D Doppler, Color Flow transthoracic echocardiogram. Exam performed in department. Left Ventricle Normal LV size. Left ventricular systolic function is normal. The estimated ejection fraction is 65 %. No regional wall motion abnormalities noted. Right Ventricle Normal right ventricle. Atria Normal left atrium. Normal right atrium. Mitral Valve Normal mitral valve. Tricuspid Valve Normal tricuspid valve. Mild tricuspid valve insufficiency. Pulmonary artery systolic pressure is 30 mmHg. Aortic Valve Trisinus/trileaflet aortic valve. Pulmonic Valve Normal pulmonic valve. Great Vessels Normal aortic root. The pulmonary artery is normal size. Normal inferior vena cava. Pericardium/Pleural No pericardial effusion. MMode/2D Measurements & Calculations LVIDd: 4.4 cm IVSd: 0.99 cm LVOT diam: 2.1 cm LVIDs: 2.8 cm LVPWd: 0.87 cm LVOT area: 3.5 cm2 RVDd: 3.4 cm FS: 35.7 % Ao root diam: 2.9 cm LAV(MOD-bp): 40.6 ml LVAd ap4: 25.1 cm2 LAV(MOD-bp) Indexed: 19.8 ml/m2 LVLd ap4: 7.5 cm LAV(MOD-sp2): 43.8 ml EDV(MOD-sp4): 66.7 ml LAV(MOD-sp4): 37.0 ml EDV(sp4-el): 70.9 ml LVAs ap4: 13.4 cm2 LVLs ap4: 6.3 cm ESV(MOD-sp4): 22.9 ml ESV(sp4-el): 24.2 ml EF(MOD-sp4): 65.7 % EF(sp4-el): 65.9 % LVAd ap2: 25.5 cm2 SV(MOD-sp4): 43.8 ml SV(MOD-sp2): 48.3 ml LVLd ap2: 7.8 cm EDV(MOD-sp2): 71.1 ml EDV(sp2-el): 71.1 ml LVAs ap2: 13.3 cm2 LVLs ap2: 6.3 cm ESV(MOD-sp2): 22.8 ml ESV(sp2-el): 23.5 ml EF(MOD-sp2): 67.9 % SV(sp4-el): 46.7 ml LA dimension(2D): 3.6 cm LA A4 area: 15.7 cm2 RA A4 area: 10.1 cm2 TAPSE: 2.0 cm Time Measurements MV dec time: 0.15 sec Doppler Measurements & Calculations MV E max tam: 101.9 cm/sec Lat Peak E' Tma: 14.0 cm/sec Med Peak E' Tam: 11.9 cm/sec MV A max tam: 69.8 cm/sec E/E' lat: 7.3 E/E' med: 8.5 MV E/A: 1.5 Ao V2 max: 141.9 cm/sec LV V1 max: 110.7 cm/sec MV dec slope: 694.8 cm/sec2 Ao max P.0 mmHg LV V1 max P.9 mmHg Ao V2 mean: 102.5 cm/sec LV V1 mean P.7 mmHg Ao mean P.8 mmHg LV V1 mean: 76.7 cm/sec Ao V2 VTI: 33.4 cm LV V1 VTI: 23.4 cm AV (velocity ratio): 0.70 NILESH(I,D): 2.5 cm2 NILESH(V,D): 2.7 cm2 SV(LVOT): 81.9 ml PA V2 max: 92.2 cm/sec TR max tam: 249.9 cm/sec PA max PG (full): 0.92 mmHg TR max P.0 mmHg ECHO/Echo Complete Interpretation Summary Normal LV size. Left ventricular systolic function is normal. The estimated ejection fraction is 65 %. Mild tricuspid valve insufficiency. Pulmonary artery systolic pressure is 30 mmHg. Structurally normal valves. Ordering Physician: Brock Henson Referring Physician: Brock Henson Performed By: Alexandra Hull RDCS
== END | disposition home or self-care (01) ==
LOC: CVS 09:58
PROVIDERS: PCP Family Medicine; Referring Provider Family Medicine; Visit Provider Family Medicine
DX: I51.7 Cardiomegaly (principal)
CPT/HCPCS: 93306

== ENCOUNTER → 2024-05-15 | Outpatient (CLI) | payer OTHER, SELFPAY ==
[2024-05-15 10:09] LABS: Absolute Lymphocyte Count 0.71 X10^3/uL (0.83-4.51); Absolute Neutrophil Count 5.4 X10^3/uL (2.0-7.7); Basophil# 0.01 X10^3/uL; Basophil% 0.2 % (0-1); Eosinophil# 0.05 X10^3/uL; Eosinophils% 0.8 % (0-5); Hematocrit 43.3 % (37-47); Hemoglobin 14.9 g/dL (12.0-15.0); Lymphocyte # 0.71 X10^3/ul (0.83-4.51); Lymphocyte % 10.9 % (19-41); Mean Corp Hgb Conc 34.4 g/dL (32-36); Mean Corpuscular Hgb 32.4 pg (27.0-32.0); Mean Corpuscular Volume 94.1 fL (81-99); Mean Platelet Vol. 9.4 fl (6.2-12.0); Monocyte# 0.38 X10^3/uL; Monocyte% 5.8 % (0-10); NRBC Flagged by Analyzer 0 % (0-5); Neutrophil # 5.36 X10^3/uL (2.7-7.7); Platelet Count 227 K/mm3 (150-450); RBC Distribution Width CV 11.3 % (11.6-14.6); RBC Distribution Width SD 38.8 fl (35.1-43.9); White Blood Count 6.5 K/mm3 (4.4-11.0)
[2024-05-15 10:31] LABS: Vitamin B12 782 pg/mL (211-911); Vitamin D,25 Hydroxy 32.1 ng/mL
[2024-05-15 10:49] LABS: AST(SGOT) 32 U/L (15-37); Alanine Aminotransfer ALT/SGPT 37 U/L (13-56); Albumin, Serum 3.8 g/dL (3.2-5.0); Alkaline Phosphatase 85 U/L (45-117); Anion Gap 8 (5-15); BUN 17 mg/dL (7-18); BUN/Creat Ratio 19.1 RATIO (10-20); Calcium,Total 9.2 mg/dL (8.5-10.1); Chloride 104 mmol/L (98-107); Creatinine, Serum 0.89 mg/dL (0.55-1.02); EST Glomerular Filtration Rate 73 mL/min (>60); Est Glom Filt Rate - Afr Amer 88 mL/min (>60); Glucose 80 mg/dL (74-106); Potassium 3.6 mmol/L (3.5-5.1); Protein, Total 7.8 g/dL (6.4-8.2); Sodium Level 136 mmol/L (136-145); T4 Free Direct 0.79 ng/dL (0.76-1.46); Thyroid Stim Hormone (TSH) 0.92 uIU/mL (0.358-3.74)
== END | disposition home or self-care (01) ==
LOC: MFPLAB 09:12
PROVIDERS: PCP Family Medicine; Visit Provider Family Medicine
DX: R53.83 Other fatigue (principal)
CPT/HCPCS: 36415; 80053; 82306; 82607; 84439; 84443; 85025

== ENCOUNTER → 2024-10-17 | Outpatient (CLI) | payer OTHER, SELFPAY ==
--- NOTE | 2024-10-17 08:34 | BI_ITS ---
MAMMOGRAPHY - BILATERAL SCREENING REASON FOR EXAM: Female, 44 years old. Routine annual screening examination. PERTINENT HISTORY: Non-contributory. TECHNIQUE: Digital bilateral breast sumanth (3D mammographic acquisition) in the CC and MLO projections. 2-D mediolateral oblique (MLO) and craniocaudad (CC) views of both breasts were obtained. CAD: Full Field Digital Mammography with Computer Added Detection was performed. COMPARISON: Comparison is made with prior study dated January 03, 2023 and December 20, 2021. FINDINGS: Breast Composition: The breasts are extremely dense, which lowers the sensitivity of mammography. There is a 5 mm x 5 mm well-defined nodule in the upper medial aspect of the right breast. Correlation with ultrasound recommended. No other significant abnormalities are identified. BI/SCRN MAMM (CAD)W/SUMANTH BILAT IMPRESSION: 5 mm x 5 mm well-defined nodule in the upper medial aspect of the right breast as described. Correlation with ultrasound recommended. ASSESSMENT CATEGORY: BIRADS Category 0: Incomplete. Need additional imaging evaluation. A letter regarding these results will be sent to the patient by the facility within 30 days. Approximately 10% of breast cancers are not detected by mammography. A normal mammogram should not delay biopsy of a clinically suspicious abnormality. [id number] Electronically Signed: Rubin Souza MD at 8:27 EST ,
== END | disposition home or self-care (01) ==
LOC: CVS 08:32
PROVIDERS: PCP Family Medicine; Referring Provider Family Medicine; Visit Provider Family Medicine
DX: Z12.31 Encounter for screening mammogram for malignant neoplasm of breast (principal); R03.0 Elevated blood-pressure reading, without diagnosis of hypertension
CPT/HCPCS: 77063; 77067; 93788

== ENCOUNTER → 2024-10-24 | Outpatient (CLI) | payer OTHER, SELFPAY ==
--- NOTE | 2024-10-24 15:05 | US_ITS ---
STUDY: ULTRASOUND BREAST - RIGHT REASON FOR EXAM: Female, 44 years old. Abnormal screening mammogram. TECHNIQUE: Axial and longitudinal images of the RIGHT breast were performed with a high resolution ultrasound transducer. # OF IMAGES: [id number] COMPARISON: Comparison is made with prior mammogram dated October 17, 2024. FINDINGS: RIGHT Breast: The upper medial aspect of the right breast was examined with ultrasound. The mammographic abnormality corresponds to a 3 mm x 4 mm x 3 mm cyst at the 12:00 position breast at 1 cm from the nipple. US/Breast Limited Unilateral IMPRESSION: The mammographic abnormality corresponds to a 3 mm x 4 mm x 3 mm. Routine mammographic follow-up recommended. ASSESSMENT CATEGORY: BIRADS Category 2: Benign. A letter regarding these results will be sent to the patient by the facility within 30 days. Electronically Signed: Rubin Souza MD at 8:33 EST ,
== END | disposition home or self-care (01) ==
LOC: OPUS 15:02
PROVIDERS: PCP Family Medicine; Referring Provider Family Medicine; Visit Provider Family Medicine
DX: N63.15 Unspecified lump in the right breast, overlapping quadrants (principal)
CPT/HCPCS: 76642

== ENCOUNTER → 2025-02-18 | Outpatient (CLI) | payer OTHER, SELFPAY ==
[2025-02-18 17:54] LABS: Absolute Lymphocyte Count 1.87 X10^3/uL (0.83-4.51); Absolute Neutrophil Count 3.4 X10^3/uL (2.0-7.7); Basophil# 0.03 X10^3/uL; Basophil% 0.5 % (0-1); Eosinophil# 0.11 X10^3/uL; Eosinophils% 1.8 % (0-5); Hematocrit 40.4 % (37-47); Lymphocyte # 1.87 X10^3/ul (0.83-4.51); Lymphocyte % 31.4 % (19-41); Mean Corp Hgb Conc 34.7 g/dL (32-36); Mean Corpuscular Hgb 32.7 pg (27.0-32.0); Mean Corpuscular Volume 94.4 fL (81-99); Mean Platelet Vol. 9.6 fl (6.2-12.0); Monocyte# 0.51 X10^3/uL; Monocyte% 8.6 % (0-10); NRBC Flagged by Analyzer 0 % (0-5); Neutrophil # 3.42 X10^3/uL (2.7-7.7); Neutrophil % 57.5 % (47-70); Platelet Count 250 K/mm3 (150-450); RBC Distribution Width CV 11.4 % (11.6-14.6); RBC Distribution Width SD 39.1 fl (35.1-43.9); Red Blood Count 4.28 M/mm3 (4.2-5.4)
[2025-02-18 18:28] LABS: ALB/GLOB Ratio 1.3 RATIO (0.9-2.4); AST(SGOT) 33 U/L (<=31); Alanine Aminotransfer ALT/SGPT 40 U/L (<=34); Albumin, Serum 4.4 g/dL (3.5-5.0); Alkaline Phosphatase 92 U/L (35-104); Anion Gap 10 (5-15); BUN 21 mg/dL (4-19); Calcium,Total 9.7 mg/dL (7.6-11.0); Carbon Dioxide 25.2 mmol/L (21.0-32.0); Chloride 103 mmol/L (98-108); Creatinine, Serum 0.89 mg/dL (0.70-1.20); EST Glomerular Filtration Rate 81 (>60); Globulin 3.4 g/dL (2.2-4.2); Glucose 79 mg/dL (70-99); Magnesium 2.3 mg/dL (1.5-2.2); Potassium 4.2 mmol/L (3.3-5.1); Protein, Total 7.8 g/dL (5.9-8.4); Sodium Level 138 mmol/L (133-145); Total Bilirubin 0.27 mg/dL (0.00-1.30); Vitamin B12 666 pg/mL (180-914)
== END | disposition home or self-care (01) ==
LOC: MFPLAB 16:55
PROVIDERS: PCP Family Medicine; Referring Provider Family Medicine; Visit Provider Family Medicine
DX: I49.3 Ventricular premature depolarization (principal); R53.83 Other fatigue
CPT/HCPCS: 36415; 80053; 82306; 82607; 83735; 84439; 84443; 85025

== ENCOUNTER → 2025-04-03 | Outpatient (CLI) | payer OTHER, SELFPAY ==
--- NOTE | 2025-04-03 09:45 | RAD_ITS ---
EXAM: XR Right Knee Complete, 4 or More Views CLINICAL INDICATION: PAIN TECHNIQUE: Four or more views of the right knee. COMPARISON: No relevant prior studies available. FINDINGS: BONES/JOINTS: Mild tricompartmental degenerative changes of the knee joint. No acute fracture. No dislocation. SOFT TISSUES: Soft tissue swelling. RAD/Knee 4 or More Views IMPRESSION: Degenerative changes as above. Reading Location: [id number]
== END | disposition home or self-care (01) ==
LOC: MTRAD 09:45
PROVIDERS: PCP Family Medicine; Referring Provider Family Medicine; Visit Provider Family Medicine
DX: S83.201A Bucket-handle tear of unspecified meniscus, current injury, left knee, initial encounter (principal); X58.XXXA Exposure to other specified factors, initial encounter
CPT/HCPCS: 73564

== ENCOUNTER → 2025-04-03 | Outpatient (CLI) | payer OTHER, SELFPAY ==
--- NOTE | 2025-04-03 15:19 | VDLE_ITS ---
Reason For Study Reason For Study: Pain RLE RIGHT LEFT GSV is normal. CFV is compressible, spontaneous, phasic, competent, CFV is compressible, spontaneous, phasic, competent and demonstrates normal augmentation. and demonstrates normal augmentation. FV is compressible, spontaneous, phasic, competent and demonstrates normal augmentation. POP V is compressible, spontaneous, phasic, competent and demonstrates normal augmentation. T/P Trunk is compressible. PTV is compressible. RT PerV is compressible. Procedure This is a venous duplex using B-mode, color flow and spectral Doppler. Exam performed in department. A preliminary report was called and/or faxed to Michelle BATISTA. VL/Venous Duplex US, Unilateral Interpretation Summary Deep veins of the right lower extremity are patent and compressible segmentally . There is no evidence of right lower extremity deep vein thrombosis. Valvular competence appears intact within the p roximal deep venous system on the right . The right great saphenous vein appears patent and compressible segmentally. The left common femoral vein is patent and compressible . Ordering Physician: Michelle Estrada Referring Physician: Brock Henson Performed By: Anh Ny, MAGUI, RVT
== END | disposition home or self-care (01) ==
LOC: CVS 15:17
PROVIDERS: PCP Family Medicine
DX: M79.661 Pain in right lower leg (principal)
CPT/HCPCS: 93971

== ENCOUNTER → 2025-05-21 | Outpatient (CLI) | payer OTHER, SELFPAY ==
[2025-05-21 13:09] LABS: FOLATES,SERUM (FOLIC ACID) 19.20 ng/mL (4.60-34.80)
[2025-05-21 13:15] LABS: AST(SGOT) 35 U/L (<=31); Alanine Aminotransfer ALT/SGPT 44 U/L (<=34); Albumin, Serum 4.1 g/dL (3.5-5.0); Alkaline Phosphatase 84 U/L (35-104); Anion Gap 11 (5-15); BUN 23 mg/dL (4-19); BUN/Creat Ratio 28.1 RATIO (10-20); Calcium,Total 9.5 mg/dL (7.6-11.0); Carbon Dioxide 24.1 mmol/L (21.0-32.0); Chloride 104 mmol/L (98-108); Ferritin 245 ng/mL (22-378); Follicle Stimulating Hormone 7.9 mIU/mL; Globulin 3.3 g/dL (2.2-4.2); Glucose 83 mg/dL (70-99); Potassium 4.4 mmol/L (3.3-5.1); Vitamin B12 599 pg/mL (180-914); Vitamin D,25 Hydroxy 62.8 ng/mL (30-100)
[2025-05-21 14:48] LABS: Iron 95 ug/dL (50-170); Iron Binding Capacity,Total 297 ug/dL (250-450); Iron Binding Capacity,Unsat 202 ug/dL (228-428)
== END | disposition home or self-care (01) ==
LOC: MTLAB 09:08
PROVIDERS: PCP Family Medicine
DX: N95.1 Menopausal and female climacteric states (principal); R53.83 Other fatigue; E55.9 Vitamin D deficiency, unspecified; Z79.899 Other long term (current) drug therapy
CPT/HCPCS: 36415; 80053; 82306; 82607; 82728; 82746; 83001; 83036; 83525; 83540; 83550; 84439; 84443; 86376